=== PATIENT | male | born 1980 ===

== ENCOUNTER 2025-06-21 14:17 | Outpatient (CLI) | payer BC ==
[2025-06-21 14:31] LABS: Hematocrit 55.6 % (42.0-52.0); Hemoglobin 17.4 g/dL (14.0-18.0); Mean Corpuscular Hemoglobin 27.4 pg (27.0-31.0); Mean Corpuscular Volume 87.7 fl (78.0-98.0); Platelet Count 310 10x3/uL (130-400); Red Blood Cell (RBC) Count 6.35 mill/uL (4.70-6.10); White Blood Cell (WBC) Count 6.5 10x3/uL (4.8-10.8)
[2025-06-21 15:25] VITALS: TEMP 98.6
[2025-06-21 15:26] VITALS: BP 140/95
== END 2025-06-21 14:18 | disposition home or self-care (01) ==
LOC: MADLAB 14:17
PROVIDERS: ATTEND Nurse Practitioner Family
DX: D75.1 Secondary polycythemia (principal)
CPT/HCPCS: 36415; 85027